=== PATIENT | female | born 1975 | race Caucasian/White ===

== ENCOUNTER 2017-07-07 18:17 | Day surgery (SDC) | payer BC ==
[~2017-07-07] VITALS: Ht 157.5 cm; Wt 88.1 kg
[~2017-07-07 18:17] MED LIST: AGM875T PO; CEFD300C3 PO; CIPR500T78 PO; METR500T PO; PRM25T PO
[2017-07-07 19:35] LABS: BASOPHILS % (AUTO) 0 % (0-10); EOSINOPHILS % (AUTO) 0 % (0-10); HEMATOCRIT 37 % (35-52); LYMPHOCYTES # (AUTO) 1.8 X 10^3 (1.0-4.0); LYMPHOCYTES % (AUTO) 15 % (12-44); MEAN CORPUSCULAR HEMOGLOBIN 27 PG (25-34); MEAN CORPUSCULAR HGB CONC 33 G/DL (32-36); MEAN CORPUSCULAR VOLUME 82 FL (80-99); MEAN PLATELET VOLUME 8.9 FL (7.4-10.4); MONOCYTES # (AUTO) 0.8 X 10^3 (0.0-1.0); MONOCYTES % (AUTO) 6 % (0-12); NEUTROPHILS # (AUTO) 9.9 X 10^3 (1.8-7.8); NEUTROPHILS % (AUTO) 79 % (42-75); PLATELET COUNT 305 10^3/uL (130-400); RED BLOOD COUNT 4.44 10^6/uL (4.35-5.85); RED CELL DISTRIBUTION WIDTH 16.3 % (10.0-14.5); WHITE BLOOD COUNT 12.5 10^3/uL (4.3-11.0)
[2017-07-07 19:36] LABS: BILIRUBIN,URINE NEGATIVE (NEGATIVE); CLARITY,URINE BLOODY; COLOR,URINE RED; GLUCOSE, URINE (UA) NEGATIVE (NEGATIVE); KETONES,URINE 2+ (NEGATIVE); LEUKOCYTE ESTERASE ,URINE 2+ (NEGATIVE); NITRITE,URINE NEGATIVE (NEGATIVE); PH,URINE 7 (5-9); PROTEIN,URINE 4+ (NEGATIVE); UROBILINOGEN,URINE NORMAL (NORMAL)
[2017-07-07] MEDS ORDERED: VENL150T PO (19:37)
[2017-07-07 19:46] LABS: WBC,URINE TNTC /HPF
[2017-07-07 20:01] LABS: ALANINE AMINOTRANSFERASE 19 U/L (0-55); ALBUMIN 4.4 GM/DL (3.2-4.5); ALKALINE PHOSPHATASE 130 U/L (40-136); BILIRUBIN,TOTAL 0.5 MG/DL (0.1-1.0); BUN/CREATININE RATIO 9; CALCIUM 9.4 MG/DL (8.5-10.1); CARBON DIOXIDE 24 MMOL/L (21-32); CHLORIDE 104 MMOL/L (98-107); CREATININE SERUM 0.74 MG/DL (0.60-1.30); GFR ESTIMATED > 60; GLUCOSE 107 MG/DL (70-105); POTASSIUM 3.7 MMOL/L (3.6-5.0); SODIUM 138 MMOL/L (135-145); TOTAL PROTEIN 7.8 GM/DL (6.4-8.2)
[2017-07-07] MEDS ORDERED: IOHEXOL 350 MG/ML 100 ML (OMNIPAQUE 350) VIAL IV ONE (20:15)
[2017-07-07] MEDS ORDERED: fentaNYL INJECTION 100 MCG/2 ML AMP IVP ONE ×2 (20:15→21:15)
[2017-07-07] MEDS ORDERED: NS 250 ML (IVPB) BAG IV ONE (20:15)
[2017-07-07] MEDS ORDERED: cefTRIAXone INJECTION 1,000 MG in NS (IVPB) 50 ML IV ONE (20:15)
--- NOTE | 2017-07-07 20:41 | ED Abdominal Pain ---
General Chief Complaint: Abdominal/GI Problems Stated Complaint: LOWER R SIDE ABD PAIN/POSS APPENDICITIS, BURNING Nursing Triage Note: RLQ pain beginning 0600 today, radiates to back and down right leg Sepsis Screen: No Definite Risk Source of Information: Patient Exam Limitations: No Limitations History of Present Illness Date Seen by Provider: July 06, 2017 Time Seen by Provider: 20:40 Initial Comments to ER with right lower quadrant abdominal pain. She noticed this upon awakening at about 6 AM this morning. She states that the pain has become progressively worse throughout the day. Poor appetite but no nausea or vomiting. No diarrhea. Timing/Duration: 12-24 Hours Severity/Quality: Moderate Location: RLQ Radiation: No Radiation Activities at Onset: None Associated Symptoms: Nausea/Vomiting Allergies and Home Medications Allergies Coded Allergies: No Known Drug Allergies (Unverified , 10/14/13) Home Medications Venlafaxine HCl 150 Mg Tab.er.24, 150 MG PO DAILY, (Reported) Patient Home Medication List Home Medication List Reviewed: Yes Review of Systems Constitutional: see HPI EENTM: No Symptoms Reported Respiratory: No Symptoms Reported Cardiovascular: No Symptoms Reported Gastrointestinal: See HPI, Abdominal Pain; Denies Nausea Genitourinary: No Symptoms Reported Musculoskeletal: no symptoms reported Skin: no symptoms reported Psychiatric/Neurological: No Symptoms Reported Endocrine: No Symptoms Reported Hematologic/Lymphatic: No Symptoms Reported Past Vwtlbuy-Xymryf-Dxhghz Hx Patient Social History Alcohol Use: Denies Use Recreational Drug Use: No Smoking Status: Former Smoker Former Smoker, Quit: Feb 13, 1999 Recent Foreign Travel: No Contact w/Someone Who Travel: No Recent Infectious Disease Expo: No Seasonal Allergies Seasonal Allergies: Yes Past Medical History Breast Last Menstrual Period: July 04, 2017 Physical Exam Vital Signs Vital Signs - First Documented 07/07/17 19:00 Temp 98.7 Pulse 112 Resp 20 B/P (MAP) 103/89 (94) Pulse Ox 99 O2 Delivery Room Air Capillary Refill : Less Than 3 Seconds General Appearance: WD/WN, no apparent distress HEENT: PERRL/EOMI, normal ENT inspection Neck: non-tender, full range of motion Respiratory: no respiratory distress, no accessory muscle use Cardiovascular: regular rate, rhythm, no murmur Gastrointestinal: normal bowel sounds, non tender, tenderness Extremities: normal range of motion, non-tender Neurologic/Psychiatric: alert, normal mood/affect, oriented x 3 Skin: normal color Progress/Results/Core Measures Results/Orders Lab Results Laboratory Tests Test 07/07/17 19:12 07/07/17 19:20 Range/Units Sodium Level 138 135-145 MMOL/L Potassium Level 3.7 3.6-5.0 MMOL/L Chloride Level 104 98-107 MMOL/L Carbon Dioxide Level 24 21-32 MMOL/L Anion Gap 10 5-14 MMOL/L Blood Urea Nitrogen 7 7-18 MG/DL Creatinine 0.74 0.60-1.30 MG/DL Estimat Glomerular Filtration Rate > 60 BUN/Creatinine Ratio 9 Glucose Level 107 H 70-105 MG/DL Calcium Level 9.4 8.5-10.1 MG/DL Total Bilirubin 0.5 0.1-1.0 MG/DL Aspartate Amino Transf (AST/SGOT) 14 5-34 U/L Alanine Aminotransferase (ALT/SGPT) 19 0-55 U/L Alkaline Phosphatase 130 40-136 U/L Total Protein 7.8 6.4-8.2 GM/DL Albumin 4.4 3.2-4.5 GM/DL White Blood Count 12.5 H 4.3-11.0 10^3/uL Red Blood Count 4.44 4.35-5.85 10^6/uL Hemoglobin 12.0 11.5-16.0 G/DL Hematocrit 37 35-52 % Mean Corpuscular Volume 82 80-99 FL Mean Corpuscular Hemoglobin 27 25-34 PG Mean Corpuscular Hemoglobin Concent 33 32-36 G/DL Red Cell Distribution Width 16.3 H 10.0-14.5 % Platelet Count 305 130-400 10^3/uL Mean Platelet Volume 8.9 7.4-10.4 FL Neutrophils (%) (Auto) 79 H 42-75 % Lymphocytes (%) (Auto) 15 12-44 % Monocytes (%) (Auto) 6 0-12 % Eosinophils (%) (Auto) 0 0-10 % Basophils (%) (Auto) 0 0-10 % Neutrophils # (Auto) 9.9 H 1.8-7.8 X 10^3 Lymphocytes # (Auto) 1.8 1.0-4.0 X 10^3 Monocytes # (Auto) 0.8 0.0-1.0 X 10^3 Eosinophils # (Auto) 0.0 0.0-0.3 10^3/uL Basophils # (Auto) 0.0 0.0-0.1 10^3/uL Urine Color RED H Urine Clarity BLOODY H Urine pH 7 5-9 Urine Specific [place] 1.010 L 1.016-1.022 Urine Protein 4+ NEGATIVE Urine Glucose (UA) NEGATIVE NEGATIVE Urine Ketones 2+ H NEGATIVE Urine Nitrite NEGATIVE NEGATIVE Urine Bilirubin NEGATIVE NEGATIVE Urine Urobilinogen NORMAL NORMAL MG/DL Urine Leukocyte Esterase 2+ H NEGATIVE Urine RBC (Auto) 5+ H NEGATIVE Urine RBC 2-5 H /HPF Urine WBC TNTC H /HPF Urine Crystals NONE /LPF Urine Bacteria NONE /HPF Urine Casts NONE /LPF Urine Mucus NEGATIVE /LPF Urine Culture Indicated NO My Orders Orders - SUJEY GIBBONS ASSURANCE SPECIALIST Cbc With Automated Diff (07/07/17 19:29) Comprehensive Metabolic Panel (07/07/17 19:29) Ua Culture If Indicated (07/07/17 19:29) Iv Heplock-Insert (Order) (07/07/17 19:29) Ct Abd/Pelv W (Appendicitis) (07/07/17 20:04) Ceftriaxone Injection (Rocephin Injectio (07/07/17 20:15) Fentanyl Injection (Sublimaze Injection (07/07/17 20:15) Iohexol Injection (Omnipaque 350 Mg/Ml 1 (07/07/17 20:15) Ns (Ivpb) (Sodium Chloride 0.9%) (07/07/17 20:15) Pharmacy Communication (Pharmacy Communi (07/07/17 20:14) Medications Given in ED Current Medications Medications Dose Ordered Sig/Stanley Route Start Time Stop Time Status Last Admin Dose Admin Iohexol 100 ml ONCE ONCE IV 07/07/17 20:15 07/07/17 20:16 DC 07/07/17 20:31 100 ML Sodium Chloride 250 ml ONCE ONCE IV 07/07/17 20:15 07/07/17 20:16 DC 07/07/17 20:31 80 ML Vital Signs/I&O 07/07/17 19:00 Temp 98.7 Pulse 112 Resp 20 B/P (MAP) 103/89 (94) Pulse Ox 99 O2 Delivery Room Air Blood Pressure Mean: 94 Urine -Bedside: Negative Departure Communication (Admissions) Time/Spoke to Admitting Phy: 20:47 [id number] spoke with Dr. Malin. He was in the emergency room already said he looked at the CT scan. He will be taking the patient to the operating room. Impression Primary Impression: Acute appendicitis Disposition: ADMITTED INPATIENT Condition: Stable Admissions Decision to Admit Reason: Admit from ER (General) Decision to Admit/Date: July 07, 2017 Time/Decision to Admit Time: 20:47 Departure-Patient Inst. Referrals: LEONARDO MONACO MD (PCP/Family) Primary Care Physician SUJEY GIBBONS APRN July 07, 2017 20:41
--- NOTE | 2017-07-07 20:44 | Diagnostic Imaging Report ---
PROCEDURE: CT abdomen and pelvis with contrast, rule out appendicitis. TECHNIQUE: Multiple contiguous axial images were obtained through the abdomen and pelvis after the administration of intravenous contrast. INDICATION: Right lower quadrant pain for one day There is fatty infiltration of the liver. The gallbladder and bile ducts are normal. The spleen, pancreas and adrenals are normal. Kidneys, ureters and bladder are normal. There is no adnexal mass. The appendix is dilated to a diameter of 9-10 mm and is filled with fluid. There is mild periappendiceal edema and the changes are consistent with appendicitis. There may be a small abscess at the tip of the appendix measuring approximately 1 cm. There is no free air. No other acute bowel abnormality is seen. IMPRESSION: There are changes of acute appendicitis. There is a 1 cm fluid collection adjacent to the tip of the appendix consistent with a small periappendiceal abscess. Dictated by: Dictated on workstation # [id number]
[2017-07-07] MEDS ORDERED: PIPERACILLIN SODIUM/TAZOBACTAM 4.5 GM in D5W 100 ML IVPB 100 ML IV ONE (21:00)
[2017-07-07] MEDS ORDERED: LIDOCAINE/EPI 1%-1:200,000 (XYLOCAINE) 10 ML VIAL ONE (21:26)
[2017-07-07] MEDS ORDERED: ceFAZolin 1,000 MG (ANCEF) VIAL ONE (21:28)
[2017-07-07] MEDS: LACTATED RINGERS 1,000 ML IV PRN ×2 (21:30→23:35)
--- NOTE | 2017-07-07 21:43 | Consultation ---
History of Present Illness History of Present Illness Patient Consulted On(alcira/time) 07/07/17 21:38 Time Seen by Provider: 20:42 History of Present Illness Surgery asked to consult regarding RLQ pain r/o appendicitis. HPI per ED: Pt to ER with right lower quadrant abdominal pain. She noticed this upon awakening at about 6 AM this morning. She states that the pain has become progressively worse throughout the day. Poor appetite but no nausea or vomiting. No diarrhea. Timing/Duration: 12-24 Hours Severity/Quality: Moderate Location: RLQ Radiation: No Radiation Activities at Onset: None Associated Symptoms: Nausea/Vomiting Pt rated the pain as 8 out of 10 at its worst. Denies ever having pain like this before. She states last time she ate was around 10am. She states the only thing that has helped has been pain medicine. Allergies and Home Medications Allergies Coded Allergies: No Known Drug Allergies (Unverified , 10/14/13) Home Medications Venlafaxine HCl 150 Mg Tab.er.24, 150 MG PO DAILY, (Reported) Patient Home Medication List Home Medication List Reviewed: Yes Past Qgatdaz-Jotnzi-Yiwyrv Hx Patient Social History Alcohol Use: Denies Use Recreational Drug Use: No Smoking Status: Former Smoker Former Smoker, Quit: Feb 13, 1999 Recent Foreign Travel: No Contact w/Someone Who Travel: No Recent Infectious Disease Expo: No Seasonal Allergies Seasonal Allergies: Yes Surgeries History of Surgeries: Yes Surgeries: Breast, Section (x 2) Respiratory History of Respiratory Disorde: No Cardiovascular History of Cardiac Disorders: No Neurological History of Neurological Disord: No Reproductive System : No Hx Reproductive Disorders: No Sexually Transmitted Disease: No HIV/AIDS: No Genitourinary History of Genitourinary Disor: No Gastrointestinal History of Gastrointestinal Di: No Musculoskeletal History of Musculoskeletal Dis: No Endocrine History of Endocrine Disorders: No HEENT History of HEENT Disorders: No Loss of Vision: Denies Hearing Impairment: Denies Cancer History of Cancer: No Psychosocial Behavioral Health Disorders: Depression Integumentary History of Skin or Integumenta: No Blood Transfusions History of Blood Disorders: No Family Medical History Significant Family History: Heart Disease (pt denies), Diabetes (Pt denies any DM in her family) Review of Systems-General Constitutional: chills, fever, weakness EENTM: No blurred vision, No hoarseness, No mouth swelling, No epistaxis, No throat swelling Respiratory: No cough, No dyspnea on exertion Cardiovascular: No chest pain, No edema, No palpitations Gastrointestinal: abdominal pain; No jaundice; nausea Genitourinary: No dysuria, No frequency, No hematuria Musculoskeletal: No back pain, No joint pain, No joint swelling Skin: No change in color, No change in hair/nails Psychiatric/Neurological: Depressed; Denies Headache, Denies Seizure, Denies Weakness Other pt denies any abnormal bruising or bleeding, no heat or cold intolerance. Physical Exam-General Problems Physical Exam Vital Signs Vital Signs - First Documented 07/07/17 19:00 Temp 98.7 Pulse 112 Resp 20 B/P (MAP) 103/89 (94) Pulse Ox 99 O2 Delivery Room Air Capillary Refill : Less Than 3 Seconds General Appearance: WD/WN, mild distress Eyes: Bilateral Eye PERRL, Bilateral Eye EOMI HEENT: pharynx normal; No scleral icterus (R), No scleral icterus (L), No pale conjunctivae (R), No pale conjunctivae (L) Neck: non-tender, full range of motion, supple, normal inspection Respiratory: chest non-tender, lungs clear, normal breath sounds, no respiratory distress, no accessory muscle use Cardiovascular: regular rate, rhythm, no edema, no gallop, no murmur Gastrointestinal: normal bowel sounds, distended, guarding (voluntary), rebound (tenderness in RLQ, hurts on right if pushed on left), tenderness (RLQ) , hernia (small UH) Back: no CVA tenderness, no vertebral tenderness Extremities: normal range of motion, non-tender, normal inspection, no pedal edema, no calf tenderness 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, no motor/sensory deficits, alert, normal mood/affect, oriented x 3 Skin: normal color, warm/dry Lymphatic: no adenopathy (neck, axilla or groin) Data Review Labs Laboratory Tests 07/07/17 19:12: Sodium Level 138, Potassium Level 3.7, Chloride Level 104, Carbon Dioxide Level 24, Anion Gap 10, Blood Urea Nitrogen 7, Creatinine 0.74, Estimat Glomerular Filtration Rate > 60, BUN/Creatinine Ratio 9, Glucose Level 107H, Calcium Level 9.4, Total Bilirubin 0.5, Aspartate Amino Transf (AST/SGOT) 14, Alanine Aminotransferase (ALT/SGPT) 19, Alkaline Phosphatase 130, Total Protein 7.8, Albumin 4.4 07/07/17 19:20: White Blood Count 12.5H, Red Blood Count 4.44, Hemoglobin 12.0, Hematocrit 37, Mean Corpuscular Volume 82, Mean Corpuscular Hemoglobin 27, Mean Corpuscular Hemoglobin Concent 33, Red Cell Distribution Width 16.3H, Platelet Count 305, Mean Platelet Volume 8.9, Neutrophils (%) (Auto) 79H, Lymphocytes (%) (Auto) 15 , Monocytes (%) (Auto) 6, Eosinophils (%) (Auto) 0, Basophils (%) (Auto) 0, Neutrophils # (Auto) 9.9H, Lymphocytes # (Auto) 1.8, Monocytes # (Auto) 0.8, Eosinophils # (Auto) 0.0, Basophils # (Auto) 0.0, Urine Color REDH, Urine Clarity BLOODYH, Urine pH 7, Urine Specific [place] 1.010L, Urine Protein 4+, Urine Glucose (UA) NEGATIVE, Urine Ketones 2+H, Urine Nitrite NEGATIVE, Urine Bilirubin NEGATIVE, Urine Urobilinogen NORMAL, Urine Leukocyte Esterase 2+H, Urine RBC (Auto) 5+H, Urine RBC 2-5H, Urine WBC TNTCH, Urine Crystals NONE, Urine Bacteria NONE, Urine Casts NONE, Urine Mucus NEGATIVE, Urine Culture Indicated NO Assessment/Plan Assessment/Plan Assessment/Plan Acute appendicitis Pt has acute appendicitis, CT proven with mildly elevated WBC and tenderness in RLQ. Plan is to take her to the OR for Laparoscopic Appendectomy possible open. Will start IV fluids, pain control, anti-emetics, and give her IV ABX 1/ 2 hour prior to surgery. Discussed the procedure with her, risks and complications not limited to pain, bleeding, infection, scar, damage to bowel and need for further procedure. Because surgery is being done later at night, will admit her over night and send her home in the am. All questions answered to her and her families satisfaction. CHINO MATOS DO July 07, 2017 21:43
[2017-07-07] MEDS ORDERED: morphine INJ 10 MG/ML 1ML (SYR OR VIAL) ONE (23:04)
[2017-07-07] MEDS ORDERED: ONDANSETRON 4 MG/2 ML (SDV) Z0FRAN ONE ×2 (23:04→23:39)
[2017-07-07] MEDS ORDERED: proPOfol 200 MG/20 ML (DIPRIVAN) VIAL IV ONE (23:14)
[2017-07-07] MEDS ORDERED: MIDAZOLAM 2 MG/2 ML (VERSED) VIAL ONE (23:15)
[2017-07-07] MEDS ORDERED: fentaNYL INJECTION 100 MCG/2 ML AMP ONE ×2 (23:15→23:39)
[2017-07-07] MEDS ORDERED: DEXAMETHASONE 10 MG/ML (DECADRON) 1 ML VIAL ONE (23:39)
[2017-07-07] MEDS ORDERED: SEVOFLURANE (ULTANE) 15 ML INHAL SOLN ONE (23:39)
[2017-07-07] MEDS ORDERED: NEOSTIGMINE 1 MG/ML 5 ML SYRINGE ONE (23:54)
[2017-07-07] MEDS ORDERED: GLYCOPYRROLATE 0.2 MG/ML (ROBINUL) 2 ML VIAL ONE (23:54)
[2017-07-07] MEDS ORDERED: ROCURONIUM 10 MG/ML 5 ML SYRINGE IV ONE (23:56)
[2017-07-08] MEDS ORDERED: SEVOFLURANE (ULTANE) 15 ML INHAL SOLN ONE ×2 (00:01)
[2017-07-08] MEDS ORDERED: LACTATED RINGERS 1,000 ML IV SCH (00:09)
--- NOTE | 2017-07-08 00:12 | Progress Note-Post Operative ---
Post-Operative Progess Note Surgeon (s)/Outside Plant Technician (s) Surgeon CHINO MATOS DO Outside Plant Technician: none Pre-Operative Diagnosis Acute Appy Post-Operative Diagnosis Same Procedure & Operative Findings Date of Procedure 07/08/17 Procedure Performed/Findings Lap Appy Anesthesia Type GET Estimated Blood Loss Estimated blood loss (mL): scant Specimens/Packing Specimens Removed CHINO Godinez DO July 08, 2017 00:12
[2017-07-08] MEDS ORDERED: morphine INJ 10 MG/ML 1ML (SYR OR VIAL) IV PRN (00:15)
[2017-07-08] MEDS ORDERED: HYDROmorphone 1 MG/ML (DILAUDID) 1 ML SYRINGE IV PRN (00:30)
[2017-07-08] MEDS ORDERED: MEPERIDINE (DEMEROL) INJ 50 MG/ML IVP PRN (00:30)
[2017-07-08] MEDS ORDERED: ONDANSETRON 4 MG/2 ML (SDV) Z0FRAN IVP PRN (00:30)
[2017-07-08] MEDS: morphine INJ 10 MG/ML 1ML (SYR OR VIAL) IVP PRN ×3 (00:36→01:09)
[2017-07-08 01:20] VITALS: BP 105/73
--- NOTE | 2017-07-08 02:16 | OPERATIVE REPORT ---
DATE OF SERVICE: PREOPERATIVE DIAGNOSIS: Acute appendicitis. POSTOPERATIVE DIAGNOSIS: Acute appendicitis. PROCEDURE: Laparoscopic appendectomy. SURGEON: Mirza Malin DO. MUD ENGINEER: None. ANESTHESIA: General endotracheal tube. SPECIMEN: Appendix. BLOOD LOSS: Scant. FLUIDS: Per anesthesia. POSTOPERATIVE CONDITION: Stable. INDICATION FOR PROCEDURE: The patient is a 42-year-old female with complaints of abdominal pain in right lower quadrant and elevated white count and CT scan showed acute appendicitis. FINDINGS: The patient had acute appendicitis, no perforation. PROCEDURE NOTE: After informed consent was obtained, the patient was brought to the operating room, placed on the table in supine position. She was sterilely prepped and draped in normal fashion. Local lidocaine was used to infiltrate the skin above the umbilicus. I then made an incision with #11 blade, carried down through skin and subcutaneous tissue, deepened down to subcutaneous tissue with Bovie electrocautery down to the fascia. Fascia was incised with Bovie electrocautery, then bluntly entered the abdomen, swept a finger around, placed 0 Vicryl [id number] suture and placed an 11 mm trocar port under direct visualization, created pneumoperitoneum and then placed 2 more ports in normal fashion using local lidocaine, 11 blade for stab incision and VersaStep system, all done under direct visualization, one suprapubically and one in left lower quadrant. The patient then placed slightly Trendelenburg. There was an adhesion from previous , able to carefully take this down with LigaSure and then able to move the small intestine away and found the appendix; it was inflamed, erythematous with little bit of fibrinous material around it, but no purulent fluid, no perforation. Able to grasp the appendix and then get under at the mesoappendix and then started coming across the mesoappendix with LigaSure, clamping and coagulating it and then transecting in this fashion stepwise going across the mesoappendix until the appendix was only attached to the cecum. Switched to a 5 mm camera at this point, and then brought an Endo-GABI into the abdomen, placed across the base of the appendix from the cecum, clamped and fired thereby transecting the appendix, removed the Endo-GABI, brought a bag in the abdomen, placed the appendix in the bag and pulled this out through the supraumbilical incision. Placed the port back in the abdomen, copiously irrigated with normal saline, suctioned this out, looked around, no other obvious pathology, questionable very small beginnings of right inguinal hernia. The staple line and the cecum looked good. At this point, the patient was then placed supine, removed all ports under direct visualization, allowed pneumoperitoneum to escape as well as suctioned out. Closed the supraumbilical incision, closing the fascia with 0 Vicryl suture previously placed. Copiously irrigated all incisions with normal saline and closed the 2 small 5 mm incisions with a single interrupted 4-0 undyed Monocryl subcuticular stitch. Closed supraumbilical incision with 4 interrupted 4-0 undyed Monocryl subcuticular stitches. Area was cleaned and dried and then Dermabond placed. The patient was transferred to recovery room in stable condition. Sponge, instrument and needle counts were correct at the end of the case. Job ID: [id number] DocumentID: [id number] Dictated Date: 07/08/2017 00:17:03 It Software Engineer Date: 07/08/2017 02:15:55 Dictated By: MIRZA MALIN DO
[2017-07-08 04:00] VITALS: BP 114/74
[2017-07-08] MEDS ORDERED: LACTATED RINGERS 1,000 ML IV ONE (05:21)
[2017-07-08 08:00] VITALS: BP 118/68
--- NOTE | 2017-07-08 10:34 | Progress Note ---
Subjective Time Seen by Provider: 10:21 Subjective/Events-last exam Pt seen and examined, states minimal abdominal pain. Has already been walking in halls. Review of Systems General: No Chills, No Night Sweats Pulmonary: No Dyspnea, No Cough Objective Exam Vital Signs Date Time Temp Pulse Resp B/P (MAP) Pulse Ox O2 Delivery O2 Flow Rate FiO2 07/08/17 08:00 97.4 95 20 118/68 (85) 93 Room Air 07/08/17 08:00 94 Room Air 1.00 07/08/17 04:30 94 Room Air 07/08/17 04:09 Room Air 07/08/17 04:00 97.4 76 10 114/74 (87) 94 OxyMask 1.00 07/08/17 01:20 98.1 81 16 105/73 (84) 95 OxyMask 1.00 07/08/17 01:16 94 Room Air 07/07/17 21:42 98.7 99 20 107/85 (94) 99 07/07/17 19:00 98.7 112 20 103/89 (94) 99 Room Air I & O 07/08/17 07:00 Intake Total 1015 ml Balance 1015 ml Capillary Refill : Less Than 3 Seconds General Appearance: No Apparent Distress, WD/WN Respiratory: Chest Non Tender, Lungs Clear, Normal Breath Sounds Gastrointestinal: soft, tenderness (mostly at supraumbilical incision, still some RLQ), hernia (small UH) Results Lab Laboratory Tests 07/07/17 19:12: Sodium Level 138, Potassium Level 3.7, Chloride Level 104, Carbon Dioxide Level 24, Anion Gap 10, Blood Urea Nitrogen 7, Creatinine 0.74, Estimat Glomerular Filtration Rate > 60, BUN/Creatinine Ratio 9, Glucose Level 107H, Calcium Level 9.4, Total Bilirubin 0.5, Aspartate Amino Transf (AST/SGOT) 14, Alanine Aminotransferase (ALT/SGPT) 19, Alkaline Phosphatase 130, Total Protein 7.8, Albumin 4.4 07/07/17 19:20: White Blood Count 12.5H, Red Blood Count 4.44, Hemoglobin 12.0, Hematocrit 37, Mean Corpuscular Volume 82, Mean Corpuscular Hemoglobin 27, Mean Corpuscular Hemoglobin Concent 33, Red Cell Distribution Width 16.3H, Platelet Count 305, Mean Platelet Volume 8.9, Neutrophils (%) (Auto) 79H, Lymphocytes (%) (Auto) 15 , Monocytes (%) (Auto) 6, Eosinophils (%) (Auto) 0, Basophils (%) (Auto) 0, Neutrophils # (Auto) 9.9H, Lymphocytes # (Auto) 1.8, Monocytes # (Auto) 0.8, Eosinophils # (Auto) 0.0, Basophils # (Auto) 0.0, Urine Color REDH, Urine Clarity BLOODYH, Urine pH 7, Urine Specific [place] 1.010L, Urine Protein 4+, Urine Glucose (UA) NEGATIVE, Urine Ketones 2+H, Urine Nitrite NEGATIVE, Urine Bilirubin NEGATIVE, Urine Urobilinogen NORMAL, Urine Leukocyte Esterase 2+H, Urine RBC (Auto) 5+H, Urine RBC 2-5H, Urine WBC TNTCH, Urine Crystals NONE, Urine Bacteria NONE, Urine Casts NONE, Urine Mucus NEGATIVE, Urine Culture Indicated NO Assessment/Plan Assessment/Plan Assessment/Plan S/P Lap Appy D/c IV and D/c home Clinical Quality Measures DVT/VTE Risk/Contraindication: Risk Factor Score Per Nursin RFS Level Per Nursing on Admit: 3=High CHINO MATOS DO July 08, 2017 10:34
[2017-07-08] MEDS ORDERED: TRAM50TA2 PO (10:35)
--- NOTE | 2017-07-08 10:37 | Discharge Inst-Surgical ---
Discharge Inst-Surgical Depart Medication/Instructions New, Converted or Re-Newed RX: RX Given to Pt/Family Patient Instructions Follow up Appt: Make appointment for 2 weeks. [phone] Instructions: No lifting greater than 10 pounds. No strenuous activity. May shower in 24 hours, no tub bath or soaking. Use incentive spirometer at home as directed. No Smoking Skin/Wound Care: You need to leave the Dermabond on over incision it will fall off on its own. Symptoms to Report: Appetite Changes, Extremity Discoloration, Numbness/Tingling, Swelling Increased , Bleeding Excessive, Eyesight Changes, Pain Increased, Urine Color Change, Constipation(Persistent), Fever over 101 degree F, Pain/Pressure in chest, Urinating Difficulty, Cough Up/Vomit Blood, Heart Beat Irreg/Pounding, Pain/ Pressure in jaw, Vaginal Bleeding Increase, Cramps in feet or legs, Lightheadedness, Pain/Pressure in shoulder, Diarrhea(Persistent), Memory Changes Suddenly, Questions/Concerns, Weight gain consecutive days, Dizziness/ Fainting, Nausea/Vomiting, Shortness of Breath, Weight gain over 2 pounds If questions or concerns contact your physician Or seek help at emergency department. Activity Activity as Tolerated: Yes Activity Instructions: Avoid Pulling & Pushing, Avoid Stress to Incision Driving Instructions: No Driving/Refer to Dr. Beavers Discharge Diet: No Restrictions Diet After 24 Hours: Clear Liquid if Nauseous If Any Problems/Questions/Issu: Contact Your Physician, Go to Emergency Room Skin/Wound Care Infection Signs and Symptoms: Increased Redness, Foul Odor of Wound, Increased Drainage, Skin Itchy or Has a Rash, Increased Swelling, Temperature Above 101 F Wound Care Comment: heating pad to neck and shoulder for pain Stitches/Glenarm/Dermabond Dis: Jessicaabond CHINO MATOS DO July 08, 2017 10:37
[2017-07-08 11:15] VITALS: BP 118/68
== END 2017-07-08 11:34 | disposition home or self-care (01) ==
LOC: EDUNIT# 18:17 → ER 18:18 → SDC 20:56 → ICU 07-08 01:16 → 4TH 07-08 04:45 → SDC 07-08 11:34
PROVIDERS: ATTEND Surgery
DX: K35.80 Unspecified acute appendicitis (principal)
CPT/HCPCS: 36415; 74177; 80053; 81000; 84703; 85025; 88304; 94664; 96374

== ENCOUNTER → 2017-07-25 | Outpatient (CLI) | payer BC ==
[~2017-07-25] MED LIST changes: +TRAM50TA2 PO; +VENL150T PO
--- NOTE | 2017-07-25 13:14 | Diagnostic Imaging Report ---
INDICATION: Cough. COMPARISON: None. FINDINGS: Frontal and lateral views of the chest demonstrate clear lungs bilaterally. The heart is normal. There is no pneumothorax. Osseous structures are normal. IMPRESSION: Negative chest. Dictated by: Dictated on workstation # [id number]
== END ==
LOC: RAD 11:47
PROVIDERS: ATTEND Surgery
DX: R05 Cough (principal)
CPT/HCPCS: 71046

== ENCOUNTER → 2017-07-31 | Outpatient (CLI) | payer BC ==
[~2017-07-31] MED LIST changes: +IOHEXOL 350 MG/ML 100 ML (OMNIPAQUE 350) VIAL IV ONE; +NS 250 ML (IVPB) BAG IV ONE
--- NOTE | 2017-07-31 08:21 | Diagnostic Imaging Report ---
PROCEDURE: CT chest with contrast only. TECHNIQUE: Multiple contiguous axial images were obtained through the chest after administration of intravenous contrast. INDICATION: Cough and chest pain. COMPARISON: No prior CT chest study is available for comparison. FINDINGS: No axillary lymphadenopathy is detected. No hilar or mediastinal lymphadenopathy is identified. No pericardial or pleural fluid is detected. The central airways are patent. The pulmonary parenchyma is unremarkable. No infiltrate, nodule or mass is identified. Imaging through the upper abdomen does show hepatic steatosis. There is a tiny nodule involving the medial limb of the right adrenal gland, stable when compared with CT dating back to 10/14/2013. IMPRESSION: 1. Unremarkable CT of the chest. No thoracic lymphadenopathy or pulmonary parenchymal abnormality is seen. 2. Hepatic steatosis. Dictated by: Dictated on workstation # [id number]
== END ==
LOC: RAD 07:25
PROVIDERS: ATTEND Surgery
DX: K76.0 Fatty (change of) liver, not elsewhere classified (principal); R05 Cough; R07.9 Chest pain, unspecified
CPT/HCPCS: 71260

== ENCOUNTER → 2018-01-02 | Outpatient (CLI) | payer BC ==
[~2018-01-02] MED LIST changes: -IOHEXOL 350 MG/ML 100 ML (OMNIPAQUE 350) VIAL IV ONE; -NS 250 ML (IVPB) BAG IV ONE
--- NOTE | 2018-01-03 20:26 | Diagnostic Imaging Report ---
EXAMINATION: Digital mammogram bilateral screening with 3D tomosynthesis. INDICATION: Screening. The current study was also evaluated with a Computer Aided Detection (CAD) system. COMPARISON: This study was compared to the prior exams of 02/02/2017 and 01/12/2016. At this time, there are no current complaints aside from pain in the left breast for the last month. FINDINGS: The fibroglandular tissue in both breasts is heterogeneously dense. This does limit the sensitivity of this exam. The benign-appearing nodular densities in the left breast seen previously are again evident and not significantly changed. On the craniocaudad view of the right breast in the lateral aspect of the breast, roughly 7 cm from the nipple, there is an 8 mm asymmetric density. This finding is difficult to identify with certainty on the MLO view but may be in the mid portion of the breast. This density could be related to fibroglandular tissue alone. The possibility that there is a small lesion in this area should still be considered. I would recommend that a compression view of this area be obtained in the CC and MLO projections as well as a true lateral view. Ultrasound should also be performed. It may prove worthwhile to perform an ultrasound exam of the left breast at the same time given the patient's history of breast pain. IMPRESSION: Additional mammographic views of the right breast and ultrasound of both breasts would be recommended for further study. ACR BI-RADS Category 0: Incomplete. (Needs additional imaging evaluation). Result letter will be mailed to the patient. Note: At least 10% of breast cancer is not imaged by mammography. Dictated by: Dictated on workstation # [id number]
== END ==
LOC: RAD 08:14
PROVIDERS: ATTEND Family Medicine
DX: Z12.31 Encounter for screening mammogram for malignant neoplasm of breast (principal)
CPT/HCPCS: 77067

== ENCOUNTER → 2018-01-25 | Outpatient (CLI) | payer BC ==
--- NOTE | 2018-01-25 10:08 | Diagnostic Imaging Report ---
INDICATION: Abnormal screening mammogram. Comparison made with prior examination from 01/02/2018. FINDINGS: Spot compression views and true lateral view of the right breast were obtained. There is heterogeneously dense fibroglandular tissue. The previously described density appears to be superimposed fibroglandular tissue. By mammography there is no dominant mass, spiculated lesion or suspicious calcification identified. Ultrasound was also performed which demonstrated what appeared to be benign-appearing thyroid nodes in both breasts. IMPRESSION: Category 3 probably benign. Repeat ultrasound in 6 months is recommended. ACR BI-RADS Category 3: Probably benign findings. Result letter will be mailed to the patient. Note: At least 10% of breast cancer is not imaged by mammography. Dictated by: Dictated on workstation # [id number]
--- NOTE | 2018-01-25 10:29 | Diagnostic Imaging Report ---
INDICATION: Abnormal mammogram. TECHNIQUE: Multiple Real-time grayscale images were obtained over both breasts in various projections. FINDINGS: In the 3 o'clock position of the left breast 10 cm from the nipple, there is a well-circumscribed hypoechoic mass measuring 0.6 x 0.7 x 0.8 cm. In the 6 o'clock position 4 cm from the nipple, there is a similar mass measuring 1.8 x 1 x 0.9 cm. In the 9 o'clock position of the right breast, there is a hypoechoic mass measuring 1.2 x 1.8 x 0.7 cm. All three of these masses have a well-defined pseudocapsule. There is no posterior acoustic shadowing. All three of these densities have features suggestive of fibroadenomas. IMPRESSION: There are several well-circumscribed hypoechoic masses in the breasts bilaterally with features suggestive of fibroadenomas. Recommend a 6 month followup to ensure stability. ACR BI-RADS Category 3: Probably benign findings. Dictated by: Dictated on workstation # [id number]
== END ==
LOC: RAD 08:56
PROVIDERS: ATTEND Family Medicine
DX: N63.10 Unspecified lump in the right breast, unspecified quadrant (principal); N63.20 Unspecified lump in the left breast, unspecified quadrant
CPT/HCPCS: 76642

== ENCOUNTER → 2018-06-04 | Outpatient (CLI) | payer BC ==
--- NOTE | 2018-06-04 20:20 | Diagnostic Imaging Report ---
INDICATION: Six-month follow-up of bilateral breast nodules. Correlation is made with prior ultrasound from 01/25/2018. FINDINGS: Left breast: 3 o'clock location 10 cm from the nipple again demonstrates a hypoechoic nodule measuring 6 mm x 6 mm x 7 mm. This compares with 7 mm x 8 mm x 8 mm on prior. At the 6 o'clock location 4 cm from the nipple, there is a 1.5 x 0.9 x 0.9 cm hypoechoic nodule. This compares with prior measurements of 1.8 x 1.1 x 0.9 cm on prior. Right breast: 9 o'clock location 3 cm from the nipple is a hypoechoic nodule measuring 7 mm x 7 mm x 9 mm. This compares with approximately 12 mm x 8 mm x 7 mm on prior. No new mass is seen. IMPRESSION: Stable bilateral breast nodules. Continued follow-up at six-month intervals with ultrasound is recommended to assure stability. ACR BI-RADS Category 3: Probably benign findings. Dictated by: Dictated on workstation # [id number]
== END ==
LOC: RAD 12:48
PROVIDERS: ATTEND Family Medicine
DX: N63.10 Unspecified lump in the right breast, unspecified quadrant (principal); N63.20 Unspecified lump in the left breast, unspecified quadrant
CPT/HCPCS: 76642

== ENCOUNTER → 2019-12-30 | Outpatient (CLI) | payer BC ==
[~2019-12-30] MED LIST changes: -TRAM50TA2 PO; +TRM50T PO
--- NOTE | 2019-12-30 12:25 | Diagnostic Imaging Report ---
PROCEDURE: CT urinary tract, rule out kidney stone. TECHNIQUE: Multiple contiguous axial images were obtained through the abdomen and pelvis without the use of intravenous contrast. Auto Exposure Controls were utilized during the CT exam to meet ALARA standards for radiation dose reduction. INDICATION: Right-sided upper posterior pain and nausea. Comparison is made with prior CT from 10/14/2013. FINDINGS: The lung bases are clear. The liver and gallbladder are unremarkable. There is no biliary duct dilatation. Pancreas and spleen are unremarkable. Small nodule right adrenal gland appears stable. No renal calculi are detected. No ureteral or bladder calculi or evidence of hydronephrosis is identified. Aorta is nonaneurysmal. No central retroperitoneal or mesenteric lymphadenopathy is seen. Small and large bowel loops are normal caliber. There is no obstruction. There is no free fluid or fluid collection identified. Appendix appears to be surgically absent. Uterus is unremarkable. Bony structures are nonacute. IMPRESSION: Unremarkable noncontrast CT of abdomen and pelvis. No acute abnormality is detected. Dictated by: Dictated on workstation # [id number]
== END ==
LOC: RAD 11:45
PROVIDERS: ATTEND Family Medicine
DX: R10.11 Right upper quadrant pain (principal); R11.0 Nausea
CPT/HCPCS: 74176

== ENCOUNTER 2020-01-15 11:09 | Outpatient (RCR) | payer BC ==
[~2020-01-15] VITALS: Ht 157 cm; Wt 84.0 kg
== END 2020-01-15 12:37 | disposition home or self-care (01) ==
LOC: PREOP 11:09
PROVIDERS: ATTEND Surgery
DX: Z01.812 Encounter for preprocedural laboratory examination (principal); M54.9 Dorsalgia, unspecified; K21.9 Gastro-esophageal reflux disease without esophagitis

== ENCOUNTER → 2020-01-16 | Outpatient (CLI) | payer BC ==
[~2020-01-16] MED LIST changes: +CATHETER FLUSH 10 ML SYR IV PRN
--- NOTE | 2020-01-16 14:47 | Diagnostic Imaging Report ---
HEPATOBILIARY SCAN DATE: January 16, 2020. INDICATION: 44-year-old female, abdominal and low back pain. COMPARISON: CT abdomen and pelvis December 30, 2019. PROCEDURE: 5.19 mCi of Tc-99m Choletec was administered intravenously and serial anterior planar images over the liver and upper abdomen were obtained. FINDINGS: There is clearance of background activity by the liver indicating hepatocyte function. There is radiotracer excretion into the bile ducts with filling of the gallbladder and extension of radiotracer into small bowel. There is no identified enterogastric reflux. Ensure was administered for calculation of gallbladder ejection fraction.. Gallbladder ejection fraction was calculated to be 7.3%. IMPRESSION: 1. No evidence of acute cholecystitis or complete common bile duct obstruction. 2. The gallbladder ejection fraction is measured below lower limits of normal at 7.3% which can be seen with biliary dyskinesia and/or chronic cholecystitis. Dictated by: Dictated on workstation # [id number]
== END ==
LOC: CARD 11:26
PROVIDERS: ATTEND Surgery
DX: M54.5 Low back pain (principal); R10.9 Unspecified abdominal pain; Z20.828 Contact with and (suspected) exposure to other viral communicable diseases
CPT/HCPCS: 78227; A9537

== ENCOUNTER → 2020-01-17 | Outpatient (CLI) | payer BC ==
[~2020-01-17] MED LIST changes: -CATHETER FLUSH 10 ML SYR IV PRN
== END ==
LOC: LAB FS 10:20
PROVIDERS: ATTEND Surgery
DX: Z01.812 Encounter for preprocedural laboratory examination (principal); K21.9 Gastro-esophageal reflux disease without esophagitis; Z20.828 Contact with and (suspected) exposure to other viral communicable diseases
CPT/HCPCS: 87635

== ENCOUNTER 2020-01-20 08:07 | Day surgery (SDC) | payer BC ==
[~2020-01-20] VITALS: Ht 157.4 cm; Wt 83.9 kg
[2020-01-20] VITALS (7 sets, daily range): BP systolic 136–149; BP diastolic 93–98
[2020-01-20] MEDS ORDERED: HURRICAINE EXT TUBE (BENZOCAINE) XX PRN (08:15)
[2020-01-20] MEDS ORDERED: LACTATED RINGERS 1,000 ML IV PRN (08:15)
[2020-01-20] MEDS ORDERED: LACTATED RINGERS 1,000 ML IV ONE (08:21)
--- NOTE | 2020-01-20 08:33 | Progress Note-Pre Operative ---
Pre-Operative Progress Note H&P Reviewed The H&P was reviewed, patient examined and no changes noted. Time Seen by Provider: 08:31 Date H&P Reviewed: Jan 20, 2020 Time H&P Reviewed: 08:32 Pre-Operative Diagnosis: RUQ pain, hematochezia, abd pain CHINO MATOS DO Jan 20, 2020 08:33
[2020-01-20] MEDS ORDERED: MIDAZOLAM 2 MG/2 ML (VERSED) VIAL ONE (08:44)
[2020-01-20] MEDS ORDERED: PROPOFOL INJECTION 50 ML IV ONE ×2 (08:44→09:13)
--- NOTE | 2020-01-20 09:32 | Progress Note-Post Operative ---
Post-Operative Progess Note Surgeon (s)/Supervisor Wound (s) Surgeon CHINO MATOS DO Supervisor Wound: none Pre-Operative Diagnosis RUQ pain, hematochezia, abd pain Post-Operative Diagnosis Gastritis Hiatal Hernia Sigmoid polyp int hemorrhoids Procedure & Operative Findings Date of Procedure 01/20/20 Procedure Performed/Findings EGD with bx Colon with hot bx Anesthesia Type IV sedation by INSPECTOR DIALS Estimated Blood Loss Estimated blood loss (mL): scant Specimens/Packing Specimens Removed antral bx GE jxn bx Sigmoid polyp CHINO MATOS DO Jan 20, 2020 09:32
--- NOTE | 2020-01-20 09:33 | Endoscopy Discharge Instruct ---
Endo Procedure/Findings Findings 1.: Gastritis 2.: Hiatal Hernia 3.: Polyp 4.: Internal Hemorrhoids Discharge Instructions - Activity: You might feel a little sleepy until tomorrow. This is due to the medicine you received to relax you. Until tomorrow, you should: NOT drive a car, operate machinery or power tools. NOT drink any alcoholic beverages. NOT make any important decisions or sign importortant papers. Do not return to work until tomorrow, unless otherwise instructed. Resume previous activities tomorrow. Diet: Start by taking liquids. If you tolerate liquids, advance to solid food. 1.: Colonscopy in 5 years, EGD in 1 year Notify Physician - If you experience excessive bleeding, unusual abdominal pain, fever, or chest pain, contact your doctor immediately. CHINO MATOS DO Jan 20, 2020 09:33
[2020-01-20] MEDS ORDERED: ONDANSETRON 4 MG/2 ML (SDV) Z0FRAN ONE (10:05)
--- NOTE | 2020-01-20 10:17 | Anesthesia-General Post-Op ---
MAC Patient Condition Mental Status/LOC: Same as Preop Cardiovascular: Satisfactory Nausea/Vomiting: Absent Respiratory: Satisfactory Pain: Controlled Complications: Absent Post Op Complications Complications None Follow Up Care/Instructions Patient Instructions None needed. Anesthesiology Discharge Order Discharge Order Patient is doing well, no complaints, stable vital signs, no apparent adverse anesthesia problems. No complications reported per nursing. SELINA RAGSDALE CRNA Jan 20, 2020 10:17
[2020-01-20] MEDS ORDERED: HURRICAINE EXT TUBE (BENZOCAINE) ONE (10:19)
[2020-01-20] MEDS ORDERED: ONDANSETRON 4 MG/2 ML (SDV) Z0FRAN IVP ONE (10:30)
--- NOTE | 2020-01-21 14:31 | OPERATIVE REPORT ---
DATE OF SERVICE: 01/20/2020 PREOPERATIVE DIAGNOSES: Right upper quadrant pain and hematochezia. POSTOPERATIVE DIAGNOSES: Gastritis, hiatal hernia, colon polyps and internal hemorrhoids. PROCEDURES PERFORMED: 1. EGD with biopsy. 2. Colonoscopy with hot biopsy. SURGEON: Mirza Malin DO. RN ACUTE CARE: None. ANESTHESIA: IV sedation by the NAME PLATE STAMPING MACHINE OPERATOR. SPECIMEN: Biopsy from the antrum, biopsy of the GE junction and the sigmoid polyp. BLOOD LOSS: Scant. FLUIDS: Per anesthesia. POSTOPERATIVE CONDITION: Stable. INDICATION FOR PROCEDURE: The patient is a 44-year-old female, who has been having some right upper quadrant and back pain and she noted to have some hematochezia, may have had some gastritis and needed a workup. FINDINGS: The patient had some gastritis and possible esophagitis. She had a 1 to 2 cm hiatal hernia. She also had a polyp in the sigmoid colon and some internal hemorrhoids. PROCEDURE NOTE: After informed consent was obtained, the patient was brought to the endoscopy suite and placed in bed in a left lateral decubitus position and administered IV sedation by the NAME PLATE STAMPING MACHINE OPERATOR, who then monitored her vitals the entire time, heart rate, blood pressure and pulse ox, we started with the EGD, placing scope down the mouth, down the esophagus, on the way down the esophagus, saw some changes at the GE junction, took a picture of this and then pushed this towards the antrum and then into the duodenum. Duodenum looked fine, took a picture. Pulled back and did a biopsy of the antrum. Retroflexed the scope, saw a hiatal hernia, was about a 2 cm hiatal hernia and then elected to pull the scope up into the GE junction, elected to do two biopsies of the GE junction, pushed the scope back into the stomach, suctioned all the air out and then pulled the scope up the esophagus and out the mouth. Switched camera, switched gloves, went down below, started the colonoscopy. Pushed all the way into about 150 cm till we got to the cecum, noted the appendiceal orifice and the ileocecal valve and then slowly withdrew the scope insufflating to look circumferentially at the lopez looking the cecum, up the ascending colon to the hepatic flexure, then down the transverse colon, splenic flexure, into the descending colon and down in the sigmoid. In the sigmoid, saw small flat polyp, I elected to do a hot biopsy of this, removed this completely and then continued down into the rectum, retroflexed in the rectal vault, saw some very minimal internal hemorrhoids, took a picture of this and then removed the scope. The patient tolerated the procedure. She was recovered in endoscopy suite. Job ID: [id number] DocumentID: [id number] Dictated Date: 01/21/2020 10:03:36 Surgery Manager Date: 01/21/2020 14:30:24 Dictated By: MIRZA MALIN DO
== END 2020-01-20 10:45 | disposition home or self-care (01) ==
LOC: ENDO 08:07
PROVIDERS: ATTEND Surgery
DX: K29.50 Unspecified chronic gastritis without bleeding (principal); K44.9 Diaphragmatic hernia without obstruction or gangrene; K63.5 Polyp of colon; K21.00 Gastro-esophageal reflux disease with esophagitis, without bleeding; K92.1 Melena; K64.8 Other hemorrhoids; F41.9 Anxiety disorder, unspecified; N39.0 Urinary tract infection, site not specified; G89.29 Other chronic pain; M54.5 Low back pain; E66.9 Obesity, unspecified; Z68.33 Body mass index [BMI] 33.0-33.9, adult; Z79.899 Other long term (current) drug therapy; Z82.49 Family history of ischemic heart disease and other diseases of the circulatory system
CPT/HCPCS: 84703

== ENCOUNTER 2020-01-30 13:33 | Outpatient (RCR) | payer BC ==
[~2020-01-30] VITALS: Ht 157 cm; Wt 84.0 kg
== END 2020-01-30 13:35 | disposition home or self-care (01) ==
LOC: PREOP 13:33
PROVIDERS: ATTEND Surgery
DX: Z01.818 Encounter for other preprocedural examination (principal)

== ENCOUNTER → 2020-02-03 | Outpatient (CLI) | payer BC ==
[~2020-02-03] MED LIST changes: +HYDR-4226 PO
== END ==
LOC: LAB FS 10:00
PROVIDERS: ATTEND Surgery
DX: Z01.812 Encounter for preprocedural laboratory examination (principal); K82.8 Other specified diseases of gallbladder; Z20.828 Contact with and (suspected) exposure to other viral communicable diseases
CPT/HCPCS: 87635

== ENCOUNTER 2020-02-05 07:45 | Day surgery (SDC) | payer BC ==
[~2020-02-05] VITALS: Ht 157 cm; Wt 87.5 kg
[2020-02-05] VITALS (11 sets, daily range): BP systolic 112–150; BP diastolic 69–90
[~2020-02-05 07:45] MED LIST changes: -HYDR-4226 PO
[2020-02-05] MEDS: LACTATED RINGERS 1,000 ML IV PRN ×2 (08:19→09:27)
[2020-02-05 08:27] LABS: BASOPHILS % (AUTO) 1 % (0-10); EOSINOPHILS # (AUTO) 0.1 10^3/uL (0.0-0.3); EOSINOPHILS % (AUTO) 2 % (0-10); HEMATOCRIT 36 % (35-52); HEMOGLOBIN 11.1 g/dL (11.5-16.0); LYMPHOCYTES % (AUTO) 33 % (12-44); MEAN CORPUSCULAR HEMOGLOBIN 25 pg (25-34); MEAN CORPUSCULAR HGB CONC 31 g/dL (32-36); MEAN CORPUSCULAR VOLUME 79 fL (80-99); MEAN PLATELET VOLUME 8.8 fL (9.0-12.2); MONOCYTES # (AUTO) 0.5 10^3/uL (0.0-1.0); MONOCYTES % (AUTO) 8 % (0-12); NEUTROPHILS # (AUTO) 3.4 10^3/uL (1.8-7.8); NEUTROPHILS % (AUTO) 57 % (42-75); PLATELET COUNT 326 10^3/uL (130-400)
[2020-02-05] MEDS ORDERED: ceFAZolin 2 GM IV Premixed 50 ML IV ONE (08:30)
[2020-02-05] MEDS ORDERED: ONDANSETRON 4 MG/2 ML (SDV) Z0FRAN ONE (08:45)
[2020-02-05] MEDS ORDERED: ROCURONIUM 10 MG/ML 5 ML SYRINGE IV ONE (08:45)
[2020-02-05] MEDS ORDERED: FAMOTIDINE 20MG/2ML IV (PEPCID) IV ONE (08:45)
[2020-02-05] MEDS ORDERED: SCOPOLAMINE 1.5 MG (TRANSDERM-SCOP) PATCH TOP ONE (08:45)
[2020-02-05] MEDS ORDERED: ONDANSETRON 4 MG/2 ML (SDV) Z0FRAN IV ONE (08:45)
[2020-02-05] MEDS ORDERED: SEVOFLURANE (ULTANE) 15 ML INHAL SOLN ONE ×3 (08:45→09:10)
[2020-02-05] MEDS ORDERED: MIDAZOLAM 2 MG/2 ML (VERSED) VIAL ONE (08:47)
[2020-02-05] MEDS ORDERED: fentaNYL INJECTION 100 MCG/2 ML AMP ONE (08:47)
--- NOTE | 2020-02-05 08:50 | Progress Note-Pre Operative ---
Pre-Operative Progress Note H&P Reviewed The H&P was reviewed, patient examined and no changes noted. Time Seen by Provider: 08:46 Date H&P Reviewed: Feb 05, 2020 Time H&P Reviewed: 08:47 Pre-Operative Diagnosis: Biliary Dyskinesia CHINO MATOS DO Feb 05, 2020 08:50
[2020-02-05] MEDS ORDERED: proPOfol 200 MG/20 ML (DIPRIVAN) VIAL IV ONE (09:10)
[2020-02-05] MEDS ORDERED: LIDOCAINE/EPI 1%-1:200,000 (XYLOCAINE) 30 ML VIAL ONE (09:25)
[2020-02-05] MEDS ORDERED: IOPAMIDOL 61% 30 ML (ISOVUE 300) VIAL ONE (09:26)
[2020-02-05] MEDS ORDERED: NEOSTIGMINE 3 MG/3 ML VIAL ONE (09:36)
[2020-02-05] MEDS ORDERED: GLYCOPYRROLATE 0.2 MG/ML (ROBINUL) 2 ML VIAL ONE (09:36)
[2020-02-05] MEDS ORDERED: HYDR-4226 PO (09:36)
--- NOTE | 2020-02-05 09:36 | Progress Note-Post Operative ---
Post-Operative Progess Note Surgeon (s)/Room Cooler Installer (s) Surgeon CHINO MATOS DO Room Cooler Installer: Josefa Pre-Operative Diagnosis Biliary Dyskinesia Post-Operative Diagnosis same Procedure & Operative Findings Date of Procedure 02/05/20 Procedure Performed/Findings Lap Celsa with IOC Anesthesia Type GET Estimated Blood Loss Estimated blood loss (mL): scant Specimens/Packing Specimens Removed GB and contents CHINO MATOS DO Feb 05, 2020 09:36
--- NOTE | 2020-02-05 09:37 | Discharge Inst-Surgical ---
Discharge Inst-Surgical Depart Medication/Instructions New, Converted or Re-Newed RX: RX Given to Pt/Family Patient Instructions Follow up Appt: Make appointment for 1 week. [phone] Instructions: No lifting greater than 20 pounds. No strenuous activity. May shower in 24 hours, no tub bath or soaking. Use incentive spirometer at home as directed. No Smoking Skin/Wound Care: May remove bandages in am. You need to leave the Dermabond on incision it will fall off on it's own. Symptoms to Report: Appetite Changes, Extremity Discoloration, Numbness/Tingling, Swelling Increased, Bleeding Excessive, Eyesight Changes, Pain Increased, Urine Color Change, Constipation(Persistent), Fever over 101 degree F, Pain/Pressure in chest, Urinating Difficulty, Cough Up/Vomit Blood, Heart Beat Irreg/Pounding, Pain/Pressure in jaw, Cramps in feet or legs, Lightheadedness, Pain/Pressure in shoulder, Diarrhea(Persistent), Memory Changes Suddenly, Questions/Concerns, Weight gain consecutive days, Dizziness/Fainting, Nausea/Vomiting, Shortness of Breath, Weight gain over 2 pounds If questions or concerns contact your physician Or seek help at emergency department. Activity Activity as Tolerated: Yes Activity Instructions: Avoid Stress to Incision Driving Instructions: No Driving/Refer to Diet Discharge Diet: Avoid Fatty Foods, Low Fat/Low Cholesterol If Any Problems/Questions/Issu: Contact Your Physician, Go to Emergency Room Skin/Wound Care Infection Signs and Symptoms: Increased Redness, Foul Odor of Wound, Increased Drainage, Skin Itchy or Has a Rash, Increased Swelling, Temperature Above 101 F Wound Care Comment: Heating pad to shoulder or neck tonight for pain Bathing Instructions: Shower Stitches/Carl/Dermabond Dis: Dermabond Ice Pack: Ice On and Off Site CHINO MATOS DO Feb 05, 2020 09:37
[2020-02-05] MEDS ORDERED: HYDROmorphone 2 MG/ML VIAL (DILAUDID) ONE (09:52)
--- NOTE | 2020-02-05 09:52 | Anesthesia-General Post-Op ---
General Patient Condition Mental Status/LOC: Same as Preop Cardiovascular: Satisfactory Nausea/Vomiting: Absent Respiratory: Satisfactory Pain: Controlled Complications: Absent Post Op Complications Complications None Follow Up Care/Instructions Patient Instructions None needed. Anesthesia/Patient Condition Patient Condition Patient is doing well, no complaints, stable vital signs, no apparent adverse anesthesia problems. No complications reported per nursing. TRENTON DYSON CRNA Feb 05, 2020 09:52
[2020-02-05] MEDS ORDERED: PROMETHAZINE INJ 25 MG/ML (PHENERGAN) AMP IVP ONE (10:00)
[2020-02-05] MEDS ORDERED: HYDROmorphone 2 MG/ML VIAL (DILAUDID) IV ONE (10:00)
[2020-02-05] MEDS ORDERED: morphine INJ 10 MG/ML 1ML (SYR OR VIAL) IVP ONE (10:00)
[2020-02-05] MEDS ORDERED: ONDANSETRON 4 MG/2 ML (SDV) Z0FRAN IVP PRN (10:00)
[2020-02-05] MEDS ORDERED: MEPERIDINE (DEMEROL) INJ 50 MG/ML IVP ONE (10:00)
[2020-02-05] MEDS ORDERED: fentaNYL INJECTION 100 MCG/2 ML AMP IVP ONE (10:00)
[2020-02-05] MEDS ORDERED: diphenhydrAMINE 50 MG/ML INJ (BENADRYL) IVP ONE (12:15)
[2020-02-05] MEDS ORDERED: ONDANSETRON 4 MG/2 ML (SDV) Z0FRAN IVP ONE ×2 (12:15)
--- NOTE | 2020-02-05 14:44 | Diagnostic Imaging Report ---
INDICATION: Abdominal pain, cholecystectomy Operative cholangiogram performed in the routine fashion. 38 images were obtained. 10 seconds fluoroscopy time was used. Contrast was injected via the cystic duct stump and surgery. The biliary tree is nondilated. There is no filling defect in the common duct. Contrast passes into the duodenum without obstruction. IMPRESSION: Negative operative cholangiogram. Dictated by: Dictated on workstation # [id number]
== END 2020-02-05 12:40 ==
LOC: SDC 07:45
PROVIDERS: ATTEND Surgery
DX: K81.1 Chronic cholecystitis (principal); K82.8 Other specified diseases of gallbladder; K44.9 Diaphragmatic hernia without obstruction or gangrene; F41.9 Anxiety disorder, unspecified; K64.0 First degree hemorrhoids; K21.00 Gastro-esophageal reflux disease with esophagitis, without bleeding; E66.9 Obesity, unspecified; Z68.35 Body mass index [BMI] 35.0-35.9, adult; Z79.899 Other long term (current) drug therapy; Z88.5 Allergy status to narcotic agent; Z87.891 Personal history of nicotine dependence; Z86.010 Personal history of colon polyps; Z82.49 Family history of ischemic heart disease and other diseases of the circulatory system
CPT/HCPCS: 36415; 76000; 84703; 85025; 87081; 88304

== ENCOUNTER → 2020-10-13 | Outpatient (CLI) | payer BC ==
[~2020-10-13] MED LIST changes: +CATHETER FLUSH 10 ML SYR IV PRN; +HOLD METFORMIN - RECEIVED CONTRAST 20 ML VIAL IV SCH; +HYDR-4226 PO; +IOHEXOL 350 MG/ML 100 ML (OMNIPAQUE 350) VIAL IV ONE; +NS 100 ML (IVPB) BAG IV ONE
--- NOTE | 2020-10-13 11:15 | Diagnostic Imaging Report ---
PROCEDURE: CT chest and abdomen with contrast. TECHNIQUE: Multiple contiguous axial images were obtained through the chest and abdomen after the administration of intravenous contrast. Auto Exposure Controls were utilized during the CT exam to meet ALARA standards for radiation dose reduction. INDICATION: Enlarged lymph nodes of the neck and axilla. CORRELATION STUDY: CT abdomen/pelvis 12/30/2019. CT chest 07/31/2017. FINDINGS: CT CHEST: A few shotty subcentimeter lymph nodes at the base of the neck are present. Two BBs are placed at the lateral base of the neck. Deep to this area is predominantly the posterior margins of the sternocleidomastoid muscles. No suggestion for definitive pathologically enlarged lymph nodes in these areas. No soft tissue distortion or mass. Visualized portions of the thyroid gland are unremarkable. In the chest, there is no abnormal hypermetabolic mediastinal, hilar, or internal mammary lymph nodes. There are a few shotty bilateral axillary lymph nodes present. There is heterogeneous uptake throughout the bilateral breast tissues. There is a slightly more focal nodular density at the inferior medial quadrant left breast, 12 mm in size. This does, however, appear to be stable from prior. Heart size is normal. Thoracic aorta is unremarkable. Lung owen are clear without infiltrate, effusion, or pneumothorax. CT ABDOMEN: The liver, spleen, pancreas, and left adrenal gland are unremarkable. Unchanged mild nodularity of the peripheral medial limb right adrenal gland. The abdominal aorta is normal in contour. Post cholecystectomy. The kidneys are with normal enhancement. No hydronephrosis or obstruction. Abdominal aorta is normal in contour. The visualized segments of the colon are largely collapsed; however, there is colonic wall thickening. The visualized gastrointestinal tract is otherwise unremarkable. No pathologically enlarged aortocaval lymph nodes. Likely surgical change of the anterior abdominal wall. Visualized osseous structures demonstrate no acute abnormality. Pelvis is not imaged on this study. IMPRESSION: CT CHEST: 1. A few shotty lymph nodes are suggested at the base of the neck as well as bilateral axilla. Definitive pathologically enlarged lymphadenopathy is not present. 2. Approximately 1 cm mass in the inferior medial left breast; however, this appears likely relatively stable from prior study. However, if not recently performed, mammogram imaging would be recommended. CT ABDOMEN: 1. No suggestion for pathologically enlarged abdominal/pelvic lymph node. 2. Colonic wall thickening is present which may be largely attributed to its collapsed state. Colitis, however, is not excluded. Correlation for any potential symptoms. Dictated by: Dictated on workstation # [id number]
== END ==
LOC: RAD FS 09:40
PROVIDERS: ATTEND Surgery
DX: N63.20 Unspecified lump in the left breast, unspecified quadrant (principal); K52.9 Noninfective gastroenteritis and colitis, unspecified; K63.89 Other specified diseases of intestine; R59.0 Localized enlarged lymph nodes
CPT/HCPCS: 71260; 74160

== ENCOUNTER → 2020-10-23 | Outpatient (CLI) | payer BC ==
[~2020-10-23] MED LIST changes: -CATHETER FLUSH 10 ML SYR IV PRN; -HOLD METFORMIN - RECEIVED CONTRAST 20 ML VIAL IV SCH; -IOHEXOL 350 MG/ML 100 ML (OMNIPAQUE 350) VIAL IV ONE; -NS 100 ML (IVPB) BAG IV ONE
--- NOTE | 2020-10-23 14:28 | Diagnostic Imaging Report ---
INDICATION: Left breast nodule noted on recent CT. CORRELATION is made with prior mammograms of 01/02/2018 and 02/02/2017. 2-D and 3-D bilateral diagnostic mammography was performed with CAD. Both breasts are heterogeneously dense, limiting the sensitivity of mammography. The circumscribed nodules in both breasts appear stable. Dominant nodule in the medial and inferior left breast is stable. No new mass is detected. No malignant-appearing microcalcifications are seen. Axillae are unremarkable. IMPRESSION: BI-RADS Category 2 Stable bilateral breast nodules. There are no mammographic features suspicious for malignancy. ACR BI-RADS Category 2: Benign findings. Result letter will be mailed to the patient. Note: At least 10% of breast cancer is not imaged by mammography. Dictated by: Dictated on workstation # [id number]
== END ==
LOC: RAD 13:45
PROVIDERS: ATTEND Surgery
DX: N63.20 Unspecified lump in the left breast, unspecified quadrant (principal); N63.10 Unspecified lump in the right breast, unspecified quadrant
CPT/HCPCS: 77066; G0279; 77062

== ENCOUNTER → 2020-11-26 | Outpatient (CLI) | payer BC ==
[~2020-11-26] MED LIST changes: +CATHETER FLUSH 10 ML SYR IV PRN; +HOLD METFORMIN - RECEIVED CONTRAST 20 ML VIAL IV SCH; +IOHEXOL 350 MG/ML 100 ML (OMNIPAQUE 350) VIAL IV ONE; +NS 100 ML (IVPB) BAG IV ONE
--- NOTE | 2020-11-26 15:25 | Diagnostic Imaging Report ---
PROCEDURE: CT neck soft tissue with contrast. TECHNIQUE: Multiple contiguous axial images were obtained through the neck after the administration of contrast. Auto Exposure Controls were utilized during the CT exam to meet ALARA standards for radiation dose reduction. INDICATION: Chronic bilateral neck swelling. Right shoulder pain. COMPARISON: None. FINDINGS: No cervical lymphadenopathy. No mass or fluid collections in the neck. The thyroid and major salivary glands are negative. Normal floor of the mouth, tongue base, epiglottis and retropharyngeal space. No focal mass or enhancement is identified in the pharynx or larynx. Lung apices are clear. No acute osseous findings. Mild mucosal thickening in the maxillary sinuses. The mastoids are clear. Skull base is intact. Major vessels in the neck are grossly patent. IMPRESSION: 1. No acute CT findings in the neck. Specifically, no lymphadenopathy, mass or fluid collection. 2. Mild mucosal thickening in the maxillary sinuses. Dictated by: Dictated on workstation # [id number]
== END ==
LOC: RAD 09:15
PROVIDERS: ATTEND Otolaryngology Otolaryngology/Facial Plastic Surgery
DX: R22.1 Localized swelling, mass and lump, neck (principal); M25.511 Pain in right shoulder; J34.89 Other specified disorders of nose and nasal sinuses
CPT/HCPCS: 70491